=== PATIENT | female | born 1990 | race Caucasian/White ===

== ENCOUNTER → 2016-07-16 | Outpatient (CLI) | payer BC | END | disposition home or self-care (01) | LOC: C.PAPS 08:43 | PROVIDERS: ATTEND Physician Assistant | DX: Z01.419 Encounter for gynecological examination (general) (routine) without abnormal findings (principal) ==

== ENCOUNTER 2020-08-25 07:59 | Inpatient (IN) ==
[2020-08-25] MEDS ORDERED: OXYTOCIN 30 UNITS/500 ML BAG IV PRN ×3 (08:01→23:52)
[2020-08-25 08:31] LABS: Hematocrit (blood only) 34.9 % (37-47); Hemoglobin 11.3 g/dL (12.0-16.0); Mean Corpuscular Hemoglobin 28.1 pg (25-34); Mean Corpuscular Hgb Conc 32.4 g/dL (32-36); Mean Corpuscular Volume 86.8 fL (80-100); Mean Platelet Volume 10.1 fL (7.4-10.4); Platelet Count 297 K/uL (130-400); RDW Coefficient of Variation 13.6 % (11.5-14.5); RDW Standard Deviation 43.1 fL (36.4-46.3); Red Blood Count 4.02 M/uL (4.2-5.4); White Blood Count 11.94 K/uL (4.8-10.8)
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
[2020-08-25] MEDS: LACTATED RINGER'S 1,000 ML IV PRN ×3 (10:25→19:57)
--- NOTE | 2020-08-25 18:19 | Labor Progress Brief Note ---
Date of Service August 25, 2020 Patient water broke spontaneously she is now 4 cm however she is having variable decelerations with each contraction we have tried positional changes and I cannot palpate a cord vaginally we will turn off the Pitocin and see if the De cells resolve. Assessment & Plan Admission and Anticipated Discharge Date Admission Date: August 25, 2020 Results & Data ([facility]) Vital Signs (Past 12 Hours) Vital Signs Temp Pulse Resp BP 08/25/20 17:52 99.7 F H 102 H 18 132/78 08/25/20 17:05 113 H 134/89 08/25/20 16:07 100 H 123/75 08/25/20 14:54 98.1 F 100 H 18 126/82 08/25/20 12:21 98.1 F 95 H 20 117/77 08/25/20 11:42 103 H 125/79 08/25/20 10:32 97 H 119/72 08/25/20 09:05 99.1 F 20 08/25/20 08:16 99.1 F 113 H 20 127/76 Coding Level of Care Code None
[2020-08-25] MEDS ORDERED: SODIUM CHLORIDE 0.9% INJ 10 ML VIAL ONE (18:51)
[2020-08-25] MEDS ORDERED: ePHEDrine sulfate 50 MG/ML AMP ONE (18:51)
[2020-08-25] MEDS ORDERED: BUPIVACAINE 0.25% 30 ML VIAL ONE (18:52)
[2020-08-25] MEDS ORDERED: fentaNYL 2MCG/ML ROPIVACAINE 1.25MG/ML 100 ML BAG EPI ONE (18:52)
[2020-08-25] MEDS ORDERED: fentaNYL citrate 100 MCG/2 ML VIAL ONE (18:52)
--- NOTE | 2020-08-25 19:58 | Anesthesiology Consultation ---
Date of Service August 25, 2020 Assessment & Plan Chart Review Chart Review: Acceptable Risk for Labor Epidural Consults Requested none History Height/Weight Height: 5 ft 3 in Weight: 107.955 kg Allergies Allergy/AdvReac Type Severity Reaction Status Date / Time sulfamethoxazole Allergy Intermediate Hives Verified 08/25/20 11:16 [From Bactrim] shellfish derived Allergy Mild Hives Verified 08/25/20 11:16 trimethoprim [From Bactrim] Allergy Hives Verified 08/25/20 11:16 Medications Home Medications Medication Instructions Recorded Confirmed Last Taken prenat.vits,maddy,jga-hxty-gxwtn 1 tab PO DAILY 08/25/20 08/25/20 08/24/20 21:00 [ Vitamin] Active Medications Generic Name Dose Route Start Last Admin Trade Name Freq PRN Reason Stop Dose Admin Lactated Ringer's 1,000 mls @ 125 mls/hr 08/25/20 08:01 08/25/20 18:23 Lr IV 08/27/20 08:00 125 mls/hr .Q8H PRN Infusion L&D Protocol Protocol Oxytocin 30 units in 500 mls @ 0 mls/hr 08/25/20 10:10 08/25/20 18:17 Pitocin IV 08/27/20 10:09 0 units/hr .Q0M PRN 0 mls/hr Labor Induction/Augmentation Titration Protocol 0 UNITS/HR Past Medical History Medical History Anxiety History of chicken pox Hx of migraines Severe dysplasia of cervix (JASON III) Past Family History Family History Son , 2017 No problems noted. Father Myocardial infarction Denies family history of Ovarian cancer Breast cancer Colorectal cancer Past Surgical History Surgical History History of cholecystectomy History of colposcopy with cervical biopsy History of oral surgery History of tonsillectomy Hx LEEP (loop electrosurgical excision procedure), cervix, Social History Smoking Status: Never smoker Hx Alcohol Use: No Hx Substance Use: No substance use type: does not use Physical Exam Vital Signs Last Vital Signs Temp 37.5 C 08/25/20 19:11 Pulse 130 H 08/25/20 19:55 Resp 18 06/04/21 19:11 BP 99/53 L 08/25/20 19:55 Pulse Ox 100 08/25/20 19:52 Testing Laboratory Results 08/25/20 08:12 08/25/20 08/25/20 15:38 08:45 POC Glucose 73 86
[2020-08-25] MEDS ORDERED: NALOXONE HCL 0.4 MG/1 ML VIAL/CARP IV PRN (19:59)
[2020-08-25] MEDS ORDERED: NALOXONE HCL 1 MG in SODIUM CHLORIDE 0.9% 1000ML 1,000 ML IV PRN (19:59)
[2020-08-25] MEDS ORDERED: fentaNYL 2MCG/ML ROPIVACAINE 1.25MG/ML 100 ML BAG EPI PRN (19:59)
[2020-08-25] MEDS ORDERED: ePHEDrine sulfate 50 MG/ML AMP IV PRN (19:59)
[2020-08-25] MEDS ORDERED: diphenhydrAMINE 50 MG/ML VIAL IV PRN (19:59)
--- NOTE | 2020-08-25 23:35 | Delivery Summary ---
Vaginal Delivery Summary Date of Service August 25, 2020 Spontaneous vaginal delivery should be noted the patient was induced for 40 weeks gestation noncompliant on gestational diabetic cervical Hager was placed Pitocin started and patient progressed to fully dilated membranes had been ruptured she pushed delivering a baby over occiput anterior position there was no nuchal cord there was some thin meconium after delivery of the head mouth and nares were suctioned with bulb gentle traction was used no excessive force baby was easily delivered. Baby did require some resuscitation for the first few minutes but otherwise was vigorous afterwards cord was clamped cord gases obtained cord blood obtained placenta removed with gentle traction IV Pitocin started there was no tearing estimated blood loss 150 mL sponge and instrument counts correct Vaginal Delivery Summary [facility] Vaginal Delivery Charge Vaginal Delivery Codes: 10558 global code for the antepartum, delivery, and post- Delivery Type Details: Procedure Anesthesia type: Epidural
[2020-08-25] MEDS ORDERED: oxyCODONE/ACETAMINOPHEN 5mg/325mg TAB PO PRN (23:52)
[2020-08-25] MEDS ORDERED: bisacodyL 10 MG SUPP PR PRN (23:52)
[2020-08-25] MEDS ORDERED: ACETAMINOPHEN 325 MG TAB PO PRN (23:52)
[2020-08-25] MEDS ORDERED: BENZOCAINE 20% AER SPR 82.5 GM CAN EXT PRN (23:52)
[2020-08-25] MEDS ORDERED: HYDROCORTISONE ACETATE 25 MG SUPP PR PRN (23:52)
[2020-08-25] MEDS ORDERED: SUPERCREAM 0.870% 15 GM JAR EXT PRN (23:52)
[2020-08-25] MEDS ORDERED: DIPHTHERIA/TETANUS/PERTUSSIS 0.5 ML SYR/VIAL IM ONE (23:52)
[2020-08-26 00:02] LABS: Base Excess Cord Venous Blood -6.6 mEq/L (-7.7-1.9); Cord Venous Blood HCO3 24 mmol/L (18.4-26.8); Cord Venous Blood PCO2 67 mmHg (30.4-57.2); Cord Venous Blood PO2 44 mmHg (14.1-43.3); Cord Venous Blood pH 7.16 (7.20-7.44)
[2020-08-26 00:05] LABS: O2 Saturation Cord Venous Bld < 60.0 % (<68)
[2020-08-26] MEDS: IBUPROFEN 600 MG TAB PO PRN ×3 (01:49→23:49)
[2020-08-26 05:51] LABS: Hematocrit (blood only) 27.5 % (37-47); Mean Corpuscular Hgb Conc 32.7 g/dL (32-36); Mean Corpuscular Volume 85.7 fL (80-100); Mean Platelet Volume 10.1 fL (7.4-10.4); Platelet Count 240 K/uL (130-400); RDW Coefficient of Variation 13.6 % (11.5-14.5); RDW Standard Deviation 42.8 fL (36.4-46.3); Red Blood Count 3.21 M/uL (4.2-5.4); White Blood Count 18.61 K/uL (4.8-10.8)
--- NOTE | 2020-08-26 07:33 | Obstetrical Progress Note ---
Date of Service August 26, 2020 Assessment & Plan (1) state: day #0.5 the patient is doing well she is ambulating she has no extremity pain she has no depression or bleeding Subjective Ambulation: ambulating normally Voiding: no voiding problems Passing Gas:: Yes Diet Tolerance:: regular diet Lochia:: Small Current Pain Level(1-10): 1 Results & Data ([facility]) Vital Signs (Past 12 Hours) Vital Signs Temp Pulse Pulse Resp BP BP Pulse Ox 08/26/20 03:05 99.0 F 102 H 18 112/76 97 08/26/20 01:41 125 H 119/79 08/26/20 01:26 125 H 116/78 08/26/20 01:11 122 H 125/75 08/26/20 00:56 127 H 121/69 08/26/20 00:41 129 H 129/76 08/26/20 00:26 117 H 147/100 H 08/26/20 00:11 108 H 147/94 H 08/25/20 23:56 115 H 147/103 H 08/25/20 23:42 121 H 144/103 H 08/25/20 23:27 127 H 100 08/25/20 23:26 120 H 142/91 H 08/25/20 23:24 130 H 91 08/25/20 23:22 124 H 100 08/25/20 23:19 117 H 92 08/25/20 23:17 141 H 97 08/25/20 23:12 109 H 100 08/25/20 23:11 115 H 148/91 H 08/25/20 23:07 113 H 100 08/25/20 23:02 116 H 100 08/25/20 23:00 98.8 F 18 08/25/20 22:57 106 H 146/86 H 100 08/25/20 22:52 113 H 100 08/25/20 22:47 107 H 100 08/25/20 22:42 117 H 100 08/25/20 22:41 110 H 140/82 08/25/20 22:37 106 H 100 08/25/20 22:32 109 H 100 08/25/20 22:30 18 08/25/20 22:27 112 H 130/82 100 08/25/20 22:22 118 H 100 08/25/20 22:17 120 H 100 08/25/20 22:13 134 H 118/85 08/25/20 22:12 118 H 98 08/25/20 22:07 119 H 100 08/25/20 22:02 115 H 100 08/25/20 22:00 18 08/25/20 21:58 113 H 134/76 08/25/20 21:57 115 H 97 08/25/20 21:52 119 H 100 08/25/20 21:47 110 H 100 08/25/20 21:42 98 H 100 08/25/20 21:41 116 H 131/76 08/25/20 21:37 107 H 100 08/25/20 21:32 97 H 100 08/25/20 21:30 18 08/25/20 21:27 104 H 130/77 99 08/25/20 21:22 106 H 100 08/25/20 21:17 97 H 100 08/25/20 21:12 107 H 100 08/25/20 21:11 111 H 135/80 08/25/20 21:07 100 H 100 08/25/20 21:02 104 H 100 08/25/20 21:00 18 08/25/20 20:57 99.7 F H 107 H 134/80 100 08/25/20 20:52 96 H 100 08/25/20 20:47 93 H 100 08/25/20 20:43 91 H 136/74 08/25/20 20:42 97 H 100 08/25/20 20:37 110 H 100 08/25/20 20:32 109 H 100 08/25/20 20:30 18 08/25/20 20:27 122 H 120/70 100 08/25/20 20:22 108 H 95 08/25/20 20:17 103 H 100 08/25/20 20:12 117 H 100 08/25/20 20:10 112 H 111/60 08/25/20 20:09 110 H 89 L 08/25/20 20:07 112 H 100 08/25/20 20:06 114 H 121/62 08/25/20 20:02 116 H 100 08/25/20 19:59 127 H 18 103/59 L 08/25/20 19:57 119 H 100 08/25/20 19:55 130 H 99/53 L 08/25/20 19:53 123 H 102/55 L 08/25/20 19:52 99 H 100 08/25/20 19:51 116 H 120/59 L 08/25/20 19:49 88 133/62 08/25/20 19:47 119 H 97 08/25/20 19:45 113 H 117/70 08/25/20 19:44 117 H 115/69 08/25/20 19:42 110 H 96 08/25/20 19:41 101 H 139/83 08/25/20 19:37 99 H 98
[2020-08-26] MEDS: PRENATAL VITAMIN 1 TAB PO SCH (08:32)
[2020-08-26] MEDS: DOCUSATE SODIUM 100 MG CAP PO SCH ×2 (08:32→20:40)
--- NOTE | 2020-08-26 08:32 | Anesthesia Procedure Note ---
Date of Service August 26, 2020 Anesthesia Post Epidural Note Vital Signs Vital Signs: Temp Pulse Resp BP Pulse Ox 99.0 F 102 H 18 112/76 97 08/26/20 03:05 08/26/20 03:05 08/26/20 03:05 08/26/20 03:05 08/26/20 03:05 Pain Intensity Abdomen: Pain Intensity: 1 Perineal: Pain Intensity: 1 Notes Mental Status: alert / awake / arousable and participated in evaluation Nausea / Vomiting: adequately controlled Pain: adequately controlled Airway Patency, RR, SpO2: stable & adequate BP & HR: stable & adequate Hydration State: stable & adequate Neuraxial Anesthesia: was administered and sensory block is resolving Anesthetic Complications: no major complications apparent and Pt Satisfied with anesthetic care Epidural: Removed without complications and With tip intact
[2020-08-26] MEDS ORDERED: NON-FORMULARY MEDICATION (Prenat.Vits,Cal,Min-Iron-Folic Tablet) PO SCH (09:00)
[2020-08-26] MEDS ORDERED: bisacodyL 5 MG TABEC PO SCH (20:00)
[2020-08-27 06:36] LABS: Hematocrit (blood only) 31.3 % (37-47); Hemoglobin 9.9 g/dL (12.0-16.0)
--- NOTE | 2020-08-27 10:37 | Obstetrical Progress Note ---
Date of Service August 27, 2020 Assessment & Plan (1) state: 30 yo PP2 from , doing well -Meeting all pp milestones -O+/rubella nonimmune/, MMR ordered -f/u 6 weeks for appt, stable for d/c today Subjective Ambulation: ambulating normally Voiding: no voiding problems Passing Gas:: Yes Diet Tolerance:: regular diet Lochia:: Small Feeding Type:: breast feeding Pain well managed with medication Review of Systems Denies fevers, chills, n/v, CLARK, CP, SOB Physical Exam Constitutional WD/WN, vitals as above no acute distress Respiratory normal respiratory effort, lungs clear to auscultation Cardiovascular RRR, no murmur, no edema Gastrointestinal (Abdomen) Percussion/Palpation: abdomen soft; abdomen nontender fundus firm at umbilicus and NT Musculoskeletal BLE symmetric, nonerythematous, nontender Results & Data ([facility]) Vital Signs (Past 12 Hours) Vital Signs Temp Pulse Resp BP Pulse Ox 08/27/20 07:45 97.9 F 78 18 112/78 97 08/26/20 23:10 97.3 F L 100 H 16 110/78 96
[2020-08-27] MEDS ORDERED: MEASLES, MUMPS & RUBELLA VIRUS VIAL SQ ONE (11:05)
[2020-08-27] MEDS: IBUPROFEN 600 MG TAB PO PRN (11:10)
[2020-08-27] MEDS: DOCUSATE SODIUM 100 MG CAP PO SCH (11:10)
[2020-08-27] MEDS: PRENATAL VITAMIN 1 TAB PO SCH (11:10)
== END 2020-08-27 13:30 | disposition home or self-care (01) | DRG 807 ==
LOC: 4S1 07:59 → 4S2 17:35 → 4S1 17:49 → 4N 08-26 02:15